=== PATIENT | male | born 1980 | race Hispanic/Latino ===

== ENCOUNTER 2017-01-19 09:14 | Emergency (ER) | payer BC ==
[2017-01-19 09:32] VITALS: O2SAT 98
[2017-01-19 09:33] VITALS: BMI 33.3
[2017-01-19] MEDS ORDERED: Oxycodone/Acetaminophen 5/325 mg Tab PO STA (10:10)
--- NOTE | 2017-01-19 10:13 | ED PDOC ---
HPI: Eye Injury/Pain Time Seen by Provider: 01/19/17 09:42 Chief Complaint (Nursing): Eye Problem Chief Complaint (Provider): Eye Problem History Per: Patient History/Exam Limitations: no limitations Additional Complaint(s): 36 y/o male presented to the emergency department with right eye pain associated with "tearing" that started today. Denies trauma, or use of contacts. Past Medical History Reviewed: Historical Data, Nursing Documentation, Vital Signs Vital Signs: Last Vital Signs Temp 98.3 F 01/19/17 09:31 Pulse 73 01/19/17 09:31 Resp 16 01/19/17 09:31 BP 153/91 H 01/19/17 09:31 Pulse Ox 98 01/19/17 09:31 - Medical History PMH: Anxiety, Bipolar Disorder, Fractures (multiple boxers fractures to right hand) Denies: Diabetes, Hepatitis, HIV, HTN, Chronic Kidney Disease (as per family) , Seizures, Sexually Transmitted Disease - Surgical History Surgical History: Back Surgery - Family History Family History: States: Unknown Family Hx - Social History Current smoker - smoking cessation education provided: Yes (Heavy Smoker > 10 Cigarettes Daily) Alcohol: None Drugs: Denies - Home Medications Home Medications: Ambulatory Orders Medication Instructions Recorded Acetaminophen [Tylenol 325mg tab] 650 mg PO Q4 PRN #0 tab 02/03/16 Divalproex [Depakote DR(*BID*)] 500 mg PO BID #0 tcp 02/03/16 Haloperidol [Haldol] 5 mg PO Q6 PRN #0 tab 02/03/16 LORazepam [Ativan] 2 mg PO Q4 PRN #0 tab 02/03/16 Nicotine 21 mg/24 hr [Nicoderm Cq] 1 patch TD DAILY #0 patch 02/03/16 OLANZapine [Zyprexa Zydis] 5 mg PO AMHS #0 odt 02/03/16 traMADol [Ultram] 50 mg PO Q6 PRN #0 tab 02/03/16 Acetaminophen with Codeine 1 tab PO Q6H PRN #10 tab 01/19/17 [Tylenol with Codeine No. 3 300 mg-30 mg] Ibuprofen [Motrin] 600 mg PO Q6H PRN #20 tab 01/19/17 Ofloxacin Ophth 0.3% [Ocuflox 2 drop OD QID #1 bottle 01/19/17 Ophth 0.3%] - Allergies Allergies/Adverse Reactions: Allergies Allergy/AdvReac Type Severity Reaction Status Date / Time No Known Allergies Allergy Verified 03/25/15 13:35 Review of Systems ROS Statement: Except As Marked, All Systems Reviewed And Found Negative (As per HPI otherwise negative) Eyes: Positive for: Pain, Other (Tearing) Physical Exam - Reviewed Nursing Documentation Reviewed: Yes Vital Signs Reviewed: Yes - Physical Exam Appears: Positive for: Non-toxic, In Acute Distress (Moderate) Head Exam: Positive for: ATRAUMATIC, NORMAL INSPECTION, NORMOCEPHALIC Skin: Positive for: Normal Color, Warm, Dry Eye Exam: Positive for: EOMI, PERRL, Conjunctival injection, Other (Positive right eye tearing. Fluorescein eye stain: Corneal abrasion at 5 o'clock. No purulent discharged noted. ) Cardiovascular/Chest: Positive for: Regular Rate, Rhythm. Negative for: Murmur Respiratory: Positive for: Normal Breath Sounds. Negative for: Accessory Muscle Use, Respiratory Distress Neurologic/Psych: Positive for: Alert, Oriented (x3) - ECG O2 Sat by Pulse Oximetry: 98 (RA) Pulse Ox Interpretation: Normal Medical Decision Making Medical Decision Making: Time: 1000 Initial Impression: Right eye pain Initial Plan: --Motrin 600 mg PO --Percocet 400 mg PO --Tetanus 0.5 ml IM --Fluorescein eye stain: Corneal abrasion at 5 o'clock. No purulent discharged noted. Time: 1012 Upon provider reevaluation patient is feeling better, is medically stable, and requires no further treatment in the ED at this time. Patient will be discharged home with Rx for Ocuflox Ophth 0.3%. Counseling was provided and all questions were answered regarding diagnosis and need for follow up with Dr. Davin Arce MD. There is agreement to discharge plan. Return if symptoms persist or worsen. Clinical Impression: Corneal Abrasion Scribe Attestation: Documented by Brielle Luke, acting as a scribe for Annette Cruz MD. Provider Scribe Attestation: All medical record entries made by the Scribe were at my direction and personally dictated by me. I have reviewed the chart and agree that the record accurately reflects my personal performance of the history, physical exam, medical decision making, and the department course for this patient. I have also personally directed, reviewed, and agree with the discharge instructions and disposition. Disposition - Clinical Impression Clinical Impression: Corneal abrasion Counseled Patient/Family Regarding: Studies Performed, Diagnosis, Need For Followup, Rx Given - Disposition Referrals: Davin Arce MD [Staff Provider] - Disposition: Routine/Home Disposition Time: 10:12 Condition: STABLE Prescriptions: Ofloxacin Ophth 0.3% [Ocuflox Ophth 0.3%] 2 drop OD QID #1 bottle Instructions: Corneal Abrasion (ED) Forms: [facility] (Macedonian)
[2017-01-19 10:55] VITALS: BP 126/78; PULSE 78; RESP 19; TEMP 97.6
== END 2017-01-19 10:54 | disposition home or self-care (01) ==
LOC: H.ER 09:14
DX: S00.201A Unspecified superficial injury of right eyelid and periocular area, initial encounter (principal); Z86.59 Personal history of other mental and behavioral disorders; F17.200 Nicotine dependence, unspecified, uncomplicated

== ENCOUNTER 2018-06-02 05:15 | Emergency (ER) | payer BC ==
[2018-06-02 05:15] VITALS: BMI 33.3
--- NOTE | 2018-06-02 06:08 | ED PDOC ---
HPI: Psych/Substance Abuse Time Seen by Provider: 06/02/18 05:30 Chief Complaint (Nursing): Psychiatric Evaluation Chief Complaint (Provider): Psychiatric Evaluation History/Exam Limitations: no limitations Additional Complaint(s): 38 year old male was brought to the ED by [place] [employer] along with EMS for evaluation of acute agitation. Patient was reported to be hallucinating and paranoid believing there were assailants in his house trying to attack him. Patient was recently discharged form a detox facility but patient admits to using cocaine. Patient is extremely agitated but is cooperative. Patient's father is at bedside and states that patient is extremely paranoid secondary to what he believes is substance abuse. Past Medical History Vital Signs: Last Vital Signs Temp 98.7 F 06/02/18 05:24 Pulse 89 06/02/18 05:24 Resp 19 06/02/18 05:24 BP 130/89 06/02/18 05:24 Pulse Ox 99 06/02/18 05:24 - Medical History PMH: Anxiety, Bipolar Disorder, Fractures (multiple boxers fractures to right hand) Denies: Diabetes, Hepatitis, HIV, HTN, Chronic Kidney Disease (as per family), Seizures, Sexually Transmitted Disease - Surgical History Surgical History: Back Surgery - Family History Family History: States: Unknown Family Hx - Social History Current smoker - smoking cessation education provided: Yes Drugs: Cocaine, Opiates, Methamphetamine - Home Medications Home Medications: Ambulatory Orders Medication Instructions Recorded RX: Acetaminophen [Tylenol 325mg 650 mg PO Q4 PRN #0 tab 02/03/16 tab] RX: Divalproex [Depakote DR(*BID*)] 500 mg PO BID #0 tcp 02/03/16 RX: Haloperidol [Haldol] 5 mg PO Q6 PRN #0 tab 02/03/16 RX: LORazepam [Ativan] 2 mg PO Q4 PRN #0 tab 02/03/16 RX: Nicotine 21 mg/24 hr [Nicoderm 1 patch TD DAILY #0 patch 02/03/16 Cq] RX: OLANZapine [Zyprexa Zydis] 5 mg PO AMHS #0 odt 02/03/16 RX: traMADol [Ultram] 50 mg PO Q6 PRN #0 tab 02/03/16 Acetaminophen with Codeine 1 tab PO Q6H PRN #10 tab 01/19/17 [Tylenol with Codeine No. 3 300 mg-30 mg] Ibuprofen [Motrin] 600 mg PO Q6H PRN #20 tab 01/19/17 RX: Ofloxacin Ophth 0.3% [Ocuflox 2 drop OD QID #1 bottle 01/19/17 Ophth 0.3%] - Allergies Allergies/Adverse Reactions: Allergies Allergy/AdvReac Type Severity Reaction Status Date / Time No Known Allergies Allergy Verified 06/02/18 05:22 Review of Systems ROS Statement: Except As Marked, All Systems Reviewed And Found Negative Psych: Positive for: Anxiety, Psychosis (hallucinating ) Physical Exam - Reviewed Nursing Documentation Reviewed: Yes Vital Signs Reviewed: Yes - Physical Exam Appears: Positive for: Non-toxic, No Acute Distress Head Exam: Positive for: ATRAUMATIC, NORMAL INSPECTION, NORMOCEPHALIC Skin: Positive for: Normal Color, Warm, DRY Eye Exam: Positive for: EOMI, Normal appearance, PERRL ENT: Positive for: Normal ENT Inspection Neck: Positive for: Normal, Painless ROM Cardiovascular/Chest: Positive for: Regular Rate, Rhythm. Negative for: Murmur Respiratory: Positive for: Normal Breath Sounds. Negative for: Respiratory Distress Back: Positive for: Normal Inspection Extremity: Positive for: Normal ROM. Negative for: Pedal Edema, Deformity Neurologic/Psych: Positive for: Alert, Oriented, Mood/Affect (agitated; disorganized thought patterns). Negative for: Motor/Sensory Deficits, Aphasia (pressured speech) - ECG O2 Sat by Pulse Oximetry: 99 (RA) Pulse Ox Interpretation: Normal Medical Decision Making Medical Decision Making: Time: 05:34 Initial Impression: 38 y/o with acute agitation in setting of substance abuse Initial Plan: * Haldol * Ativan * Labs * Crisis evaluation 07:00 Patient care endorsed to Dr. Chawla pending labs, crisis evaluation, and reevaluation. Scribe Attestation: Documented by Wolfgang Min acting as a scribe for Dougie Carrillo MD. Provider Scribe Attestation: All medical record entries made by the Scribe were at my direction and personally dictated by me. I have reviewed the chart and agree that the record accurately reflects my personal performance of the history, physical exam, medical decision making, and the department course for this patient. I have also personally directed, reviewed, and agree with the discharge instructions and disposition. Disposition - Clinical Impression Clinical Impression: Agitation, Substance abuse - Disposition Disposition: Transfer of Care Disposition Time: 07:00 Condition: STABLE Forms: [employer] (Sammarinese) Patient Signed Over To: Vpiul Chawla
[2018-06-02 06:16] LABS: BASO # 0.1 K/uL (0.0-0.2); BASO % 1.1 % (0.0-2.0); EOS % 0.5 % (0.0-4.0); HEMOGLOBIN 13.5 g/dL (12.0-18.0); LYMPH # 1.4 K/uL (1.0-4.3); MEAN CELL VOLUME 88.6 fl (80.0-94.0); MEAN CORPUSCULAR HEMOGLOBIN 30.6 pg (27.0-31.0); MEAN CORPUSCULAR HGB CONC 34.5 g/dL (33.0-37.0); MONO # 0.7 K/uL (0.0-0.8); MONO % 7.8 % (0.0-10.0); NEUT % 75.6 % (50.0-75.0); RBC 4.4 Mil/uL (4.40-5.90); RED CELL DISTRIBUTION WIDTH 13.7 % (11.5-14.5); WHITE BLOOD COUNT 9.2 K/uL (4.8-10.8)
[2018-06-02 06:27] LABS: ALB/GLOB RATIO 1.3 (1.0-2.1); ALBUMIN 4.6 g/dL (3.5-5.0); ALT/SGPT 44 U/L (21-72); AST/SGOT 34 U/L (17-59); BLOOD UREA NITROGEN 25 mg/dl (9-20); CALCIUM 9.6 mg/dL (8.4-10.2); GFR NON-AFRICAN AMERICAN > 60
[2018-06-02 07:46] LABS: BARBITURATES, UR NEGATIVE (NEGATIVE)
[2018-06-02 07:48] LABS: BENZODIAZEPINES, UR NEGATIVE (NEGATIVE); OPIATES, UR NEGATIVE (NEGATIVE); PHENCYCLIDINE, UR NEGATIVE (NEGATIVE)
--- NOTE | 2018-06-02 12:16 | ED PDOC ---
- Laboratory Results Result Diagrams: 06/02/18 06:05 06/02/18 06:05 Lab Results: Total Bilirubin 1.0 mg/dl (0.2-1.3) 06/02/18 06:05 AST 34 U/L (17-59) 06/02/18 06:05 ALT 44 U/L (21-72) 06/02/18 06:05 Alkaline Phosphatase 90 U/L (38-126) 06/02/18 06:05 Total Protein 8.0 G/DL (6.3-8.2) 06/02/18 06:05 Albumin 4.6 g/dL (3.5-5.0) 06/02/18 06:05 Globulin 3.5 gm/dL (2.2-3.9) 06/02/18 06:05 Albumin/Globulin Ratio 1.3 (1.0-2.1) 06/02/18 06:05 - ECG O2 Sat by Pulse Oximetry: 99 (RA) - Progress Re-evaluation Time: 12:15 Condition: Improved (Evaluated by Crisis. No suicidal or homicidal ideation) Disposition - Clinical Impression Clinical Impression: Agitation, Substance abuse - POA Present On Arrival: None - Disposition Disposition: Other Institution Disposition Time: 12:15 Condition: FAIR Instructions: Cocaine Use Disorder Forms: [facility] (Ukrainian)
[2018-06-02 12:38] VITALS: BP 120/63; PULSE 65; RESP 17; TEMP 98.5; O2SAT 100
== END 2018-06-02 12:37 | disposition home or self-care (01) ==
LOC: H.ER 05:15
DX: R45.1 Restlessness and agitation (principal); F19.10 Other psychoactive substance abuse, uncomplicated; F31.9 Bipolar disorder, unspecified; F41.9 Anxiety disorder, unspecified; F17.200 Nicotine dependence, unspecified, uncomplicated
CPT/HCPCS: 80053; 85025; 96372; 99282; G0480; J1630; J2060